=== PATIENT | male | born 2000 | race Caucasian/White ===

== ENCOUNTER 2019-02-28 21:15 | Emergency (ER) | payer OTHER ==
[~2019-02-28] VITALS: Ht 172.7 cm; Wt 110.7 kg
[2019-02-28 21:32] VITALS: Ht 172.7 cm; Wt 110.7 kg
[2019-02-28 22:41] VITALS: BP 145/81
== END 2019-02-28 22:41 | disposition home or self-care (01) ==
LOC: ED 21:15
DX: S01.01XA Laceration without foreign body of scalp, initial encounter (principal); W20.8XXA Other cause of strike by thrown, projected or falling object, initial encounter; Y93.89 Activity, other specified; Y92.89 Other specified places as the place of occurrence of the external cause; Y99.8 Other external cause status

== ENCOUNTER 2019-03-02 15:23 | Emergency (ER) | payer OTHER ==
[~2019-03-02] VITALS: Ht 167.6 cm; Wt 109.8 kg
[2019-03-02 15:37] VITALS: BP 147/64; Ht 167.6 cm; Wt 109.8 kg
== END 2019-03-02 16:44 | disposition home or self-care (01) ==
LOC: ED 15:23
DX: S01.01XD Laceration without foreign body of scalp, subsequent encounter (principal); X58.XXXD Exposure to other specified factors, subsequent encounter

== ENCOUNTER 2019-03-06 10:40 | Emergency (ER) | payer OTHER ==
[~2019-03-06] VITALS: Ht 170.2 cm; Wt 108.0 kg
[2019-03-06 10:47] VITALS: BP 149/74; Ht 170.2 cm; Wt 108.0 kg
== END 2019-03-06 11:37 | disposition home or self-care (01) ==
LOC: ED 10:40
DX: S01.91XD Laceration without foreign body of unspecified part of head, subsequent encounter (principal); X58.XXXD Exposure to other specified factors, subsequent encounter